=== PATIENT | female | born 1995 | race African-American/Black ===

== ENCOUNTER 2024-07-26 19:50 | Emergency (ER) | payer OTHER, SELFPAY ==
[2024-07-26 20:18] VITALS: BP 109/63; BP 142/82; PULSE 78; PULSE 80; RESP 18; TEMP 37.1; O2SAT 97; O2SAT 98; BMI 29.1
--- NOTE | 2024-07-26 20:18 | PC.NURSE ---
security safety searched the pt and no contraband found
--- NOTE | 2024-07-26 21:39 | ED.PSYCH ---
HPI - Psych General Chief Complaint: ETOH/Substance Use Stated Complaint: ?od, admits to heroine use, no narcan given Time Seen by Provider: 07/26/24 21:24 History of Present Illness ED Provider: desi HPI Narrative: 28 F with OUD, DM, pancreatitis, with inadvertent snorted heroin OD today. No naloxone. Related Data Allergies Allergy/AdvReac Type Severity Reaction Status Date / Time No Known Allergies Allergy Verified 07/26/24 20:21 PMFSH Social History Social History Smoked in Last 30 Days: Yes Use of substances other than those prescribed or required for medical reasons: Yes Substance Use Type: Heroin Substance Use Frequency: Daily Last Used Substance: Hours (ago) Any prior treatment program specific to substance use: No Advance Directives: No Advance Directives Information Provided: No Patient : No Physical Exam Vital Signs: Vital Signs: Last Vital Signs Temp 98.3 F 07/26/24 23:02 Pulse 54 07/26/24 23:02 Resp 18 07/26/24 23:02 BP 140/84 H 07/26/24 23:02 Pulse Ox 96 07/26/24 23:02 O2 Del Method Room Air 07/26/24 23:02 BMI result Body Mass Index 29.1 Const: Other: EXAM: Gen: Alert, awake, well appearing, well hydrated. Head: Atraumatic Eyes: Anicteric, Normal conjunctiva. ENT: Moist mucosa, no pallor. ? Neck: Supple. Skin: ?No observable rash or bruising on exposed or examined skin Respiratory: Breathing comfortably, No distress.Clear to auscultation bilaterally, symmetric chest expansion, No wheeze, rales, ronchi. Cardiovascular: Regular rate and rhythm. No murmurs or rub. Well perfused periphery, warm extremities. No edema. ? Abdominal: No FOCAL TENDERNESS. Soft, no objective distension. No palpable masses or obvious organomegaly. ?No guarding, no rebound tenderness or other peritoneal findings. : No flank tenderness. Neuro: Alert. Gross movement of all extremities intact. ? Psych: Calm. Cooperative. MSK: No grossly visible deformity. Vital signs: See flowsheet Medications Administered Discontinued Medications Generic Name Dose Route Start Last Admin Trade Name Freq PRN Reason Stop Dose Admin Ondansetron HCl 4 mg 07/26/24 21:39 07/26/24 21:57 Ondansetron Odt 4 Mg Tab.Rapdis TRANSLINGU 07/26/24 21:40 4 mg ONCE ONE Administration Medical Decision Making Medical Decision Making MDM Narrative: 28-year-old female with or UD. Acknowledges opioid use prior. No naloxone administered. Awake alert atraumatic exam here. Monitored briefly. Offered pamphlet and resources for S UD. No actionable findings on exam labs discharge Lab Data 07/26/24 22:03 07/26/24 22:03 Labs: Lab Results 07/26/24 Range/Units 22:03 WBC 10.5 (4.8-10.8) X10*3/uL RBC 4.77 (4.20-5.50) X10*6/uL Hgb 12.6 (12.0-16.0) g/dl Hct 36.7 L (37.0-47.0) % MCV 76.9 L (80.0-98.0) fL MCH 26.4 L (27.0-33.0) pg MCHC 34.3 (31.0-35.0) g/dl RDW 13.3 (11.0-16.0) % Plt Count 255 (160-400) X10*3/uL MPV 11.3 (9.4-12.3) fL Immature Gran % (Auto) 0.3 (0.0-0.4) % Neut % (Auto) 71.8 (45-73) % Lymph % (Auto) 22.0 (20-40) % Victoria % (Auto) 5.5 (2-11) % Eos % (Auto) 0.1 (0-4) % Baso % (Auto) 0.3 (0-2) % Lymph # (Auto) 2.3 (1.2-4.9) X10*3/uL Victoria # (Auto) 0.6 (0.1-1.2) X10*3/uL Eos # (Auto) 0.0 (0.0-0.4) X10*3/uL Baso # (Auto) 0.0 (0.0-0.2) X10*3/uL Abs Immat Gran (auto) 0.03 (0.00-0.03) X10*3/uL Absolute Neuts (auto) 7.6 (2.0-8.3) x10*3/uL Absolute Nucleated RBC 0.000 (0.0-0.012) X10*3/uL Nucleated RBC % (auto) 0.0 (0.0-0.2) /100WBC Sodium 139 (135-145) mmol/L Potassium 4.6 (3.3-5.1) mmol/L Chloride 103 (96-108) mmol/L Carbon Dioxide 26 (22-29) mmol/L Anion Gap 15 (12-20) BUN 11 (9-16) mg/dL Creatinine 1.19 (0.5-1.4) mg/dL Estim Creat Clear Calc 71.9 Estimated GFR 53 Random Glucose 141 H (60-115) mg/dL Calcium 10.3 H (8.4-10.2) mg/dL Total Bilirubin 0.3 (0.0-1.0) mg/dL AST 23 (5-31) U/L ALT 14 (0-31) U/L Alkaline Phosphatase 83 (39-117) U/L Total Protein 8.6 H (6.5-8.0) g/dL Albumin 5.1 H (3.5-5.0) g/dL Lipase 26 (8-78) U/L Beta HCG, Quant < 2 mIU/mL Discharge Plan Discharge Clinical Impression: Opioid overdose Patient Disposition: Home, Self-Care Instructions: Prescription Opioid Overdose (ED) Additional Instructions: DISCHARGE DIAGNOSES: Overdose from opioid HISTORY OF PRESENTATION: Heroin overdose EMERGENCY DEPARTMENT COURSE,TESTS, TREATMENTS: While in the ED today your monitored and had basic blood work DISCHARGE MEDICATIONS: ?[We have made no changes to your regular medication regimen] FOLLOW-UP: ?Call your primary or general physician soon as possible to discuss your symptoms, your ED visit and to discuss follow up plans INSTRUCTIONS ?& RETURN PRECAUTIONS: If any symptoms change first call your primary physician, if it is after-hours your primary doctors office should have a provider bathroom tiling professional you can speak with. If the symptoms are severe or very concerning to you then call 911 or return to the ED. You declined additional naloxone Rubin Britton MD Emergency Physician [facility] Interventions: ED Discharge Assessment Last Done: 07/26/24 23:02 Discharge Date/Time: 07/26/24 23:03 Print Language: Vietnamese
[2024-07-26] MEDS: Ondansetron ODT 4 MG TAB.RAPDIS TRANSLINGU (21:57)
[2024-07-26 22:11] LABS: MANUAL DIFF FLAG NO
[2024-07-26 22:17] VITALS: BP 123/76; PULSE 58; RESP 16; TEMP 36.1; O2SAT 96
[2024-07-26 22:19] LABS: Basophils Percent Auto 0.3 % (0-2); Eosinophils Percent Auto 0.1 % (0-4); Hematocrit 36.7 % (37.0-47.0); Hemoglobin 12.6 g/dl (12.0-16.0); Imm Gran Abs Auto 0.03 X10*3/uL (0.00-0.03); Imm Gran Pct Auto 0.3 % (0.0-0.4); Lymphocytes Absolute Auto 2.3 X10*3/uL (1.2-4.9); Mean Corpuscular HGB Conc 34.3 g/dl (31.0-35.0); Mean Corpuscular Hemoglobin 26.4 pg (27.0-33.0); Mean Corpuscular Volume 76.9 fL (80.0-98.0); Mean Platelet Volume 11.3 fL (9.4-12.3); Monocytes Absolute Auto 0.6 X10*3/uL (0.1-1.2); Monocytes Percent Auto 5.5 % (2-11); Neutrophils Absolute Auto 7.6 x10*3/uL (2.0-8.3); Neutrophils Percent Auto 71.8 % (45-73); Platelet Count 255 X10*3/uL (160-400); Red Blood Count 4.77 X10*6/uL (4.20-5.50); Red Cell Distribution Width 13.3 % (11.0-16.0); White Blood Count 10.5 X10*3/uL (4.8-10.8)
[2024-07-26 22:36] LABS: Alanine Aminotransferase 14 U/L (0-31); Albumin Level 5.1 g/dL (3.5-5.0); Alkaline Phosphatase 83 U/L (39-117); Anion Gap 15 (12-20); Aspartate Amino Transferase 23 U/L (5-31); Bilirubin Total 0.3 mg/dL (0.0-1.0); Blood Urea Nitrogen 11 mg/dL (9-16); Calcium 10.3 mg/dL (8.4-10.2); Carbon Dioxide 26 mmol/L (22-29); Chloride 103 mmol/L (96-108); Creatinine Clr Calc Pharmacy 71.9; Estimated Glomerular Filt Rate 53; Glucose Random 141 mg/dL (60-115); HCG Quantitative < 2 mIU/mL; Lipase 26 U/L (8-78); Potassium 4.6 mmol/L (3.3-5.1); Sodium 139 mmol/L (135-145); Total Protein 8.6 g/dL (6.5-8.0)
[2024-07-26 23:02] VITALS: BP 140/84; PULSE 54; RESP 18; TEMP 36.8; O2SAT 96
== END 2024-07-26 23:03 | disposition home or self-care (01) ==
PROVIDERS: Emergency Provider Emergency Medicine; PCP Pediatrics
DX: T40.2X1A Poisoning by other opioids, accidental (unintentional), initial encounter (principal); Y92.9 Unspecified place or not applicable; E11.9 Type 2 diabetes mellitus without complications
CPT/HCPCS: 36415; 80053; 83690; 84702; 85025; 99283; 99284